=== PATIENT | male | born 1960 | race African-American/Black ===

== ENCOUNTER 2016-09-22 12:00 | Emergency (ER) | payer OTHER ==
[~2016-09-22] VITALS: Ht 175.3 cm; Wt 118.9 kg
[~2016-09-22 12:00] MED LIST: AMLODIPINE-BEN1 EACH PO; BENADRYL25 MG PO; DELTASONE20 M1 PO; FLONASE16 G1 BOTH NARES; GABAPENTIN600 MG PO; HYDROCODON-ACE1 EAC7 PO; KEFLEX500 MG PO; LIPITOR10 MG PO; LISINOPRIL40 MG PO; MOTRIN800 MG PO; NAPROSYN500 MG PO; RANITIDINE HCL150 MG PO; REGLAN10 MG PO; VALIUM5 MG PO
[2016-09-22] MEDS ORDERED: AZITHROMYCIN250 MG PO (12:11)
[2016-09-22] MEDS ORDERED: PEPCID20 MG PO (13:31)
[2016-09-22] MEDS ORDERED: PREDNISONE50 MG PO (13:31)
[2016-09-22] MEDS ORDERED: BENADRYL25 MG PO (13:31)
[2016-09-22 13:46] VITALS: BP 145/89
== END 2016-09-22 13:54 | disposition home or self-care (01) ==
LOC: EME 12:00
DX: T78.40XA Allergy, unspecified, initial encounter (principal); J45.909 Unspecified asthma, uncomplicated; E11.9 Type 2 diabetes mellitus without complications
CPT/HCPCS: 99281; 99284; J1200; J2930; J7030; S0028

== ENCOUNTER 2016-10-15 19:29 | Emergency (ER) | payer OTHER ==
[~2016-10-15] VITALS: Ht 175.3 cm; Wt 114.8 kg
[~2016-10-15 19:29] MED LIST changes: +AZITHROMYCIN250 MG PO; +PEPCID20 MG PO; +PREDNISONE50 MG PO
[2016-10-15 19:50] LABS: POINT-OF-CARE METER ID UU13113778
[2016-10-15 23:35] LABS: POINT-OF-CARE METER ID UU14100415
[2016-10-15 23:44] VITALS: BP 121/73
== END 2016-10-15 23:45 | disposition home or self-care (01) ==
LOC: EME 19:29
PROVIDERS: Emergency Medicine
DX: E11.65 Type 2 diabetes mellitus with hyperglycemia (principal); J45.909 Unspecified asthma, uncomplicated
CPT/HCPCS: 82948; 99281; 99285; J7030

== ENCOUNTER 2016-12-24 03:14 | Observation (INO) | payer OTHER ==
[~2016-12-24] VITALS: Ht 175.3 cm; Wt 115.4 kg
[2016-12-24 04:31] LABS: HEMATOCRIT 43.8 % (38.0-50.0); MCH 25.3 PG (29.0-34.0); MCV 79.2 FL (86-99); MEAN PLAT.VOLUME 10.1 uM^3 (9.0-12.4); PLATELET COUNT 369 K/uL (156-360); RBC DIS.WIDTH-CV 12.5 % (11.8-14.6); RBC DIS.WIDTH-SD 35.7 % (39-53); RED BLOOD COUNT 5.53 M/uL (4.00-5.50); WHITE BLOOD COUNT 5.8 K/uL (4.1-10.2)
[2016-12-24 04:42] LABS: CHLORIDE 104 mEq/L (99-109); POTASSIUM 3.8 mEq/L (3.7-5.4); SODIUM 138 mEq/L (136-147)
[2016-12-24 04:43] LABS: GLUCOSE 158 mg/dL (70-99)
[2016-12-24 04:45] LABS: ANION GAP 10 MEQ/L (2-14)
[2016-12-24 04:47] LABS: GFR ESTIMATE (CALCULATED) > 59 mL/min/
[2016-12-24 04:48] LABS: UREA NITROGEN (BUN) 14 mg/dL (9-23)
[2016-12-24 04:52] LABS: TROP-I INTERPRETATION NEGATIVE; TROPONIN-I < 0.01 ng/mL (0.0-0.30)
[2016-12-24 05:34] LABS: INFLUENZA A VIRAL ANTIGEN NEGATIVE; INFLUENZA B VIRAL ANTIGEN NEGATIVE
[2016-12-24 06:26] LABS: D-DIMER ELISA 0.64 mg/L FEU (< 0.57)
[2016-12-24] MEDS ORDERED: AMLODIPINE BESY10 MG PO (08:11)
[2016-12-24] MEDS ORDERED: METFORMIN HCL1000 MG PO (08:11)
[2016-12-24] MEDS ORDERED: GLIMEPIRIDE2 MG PO (08:12)
[2016-12-24] MEDS ORDERED: HYDROCHLOROTH12.5 M3 PO (08:12)
[2016-12-24] MEDS ORDERED: OPANA ER20 MG PO (08:13)
[2016-12-24 09:45] LABS: TROP-I INTERPRETATION NEGATIVE; TROPONIN-I < 0.01 ng/mL (0.0-0.30)
[2016-12-24 10:40] LABS: Estimated Average Glucose 169 mg/dL (70-123); HEMOGLOBIN A1c (GLYCOHEMOGLOB) 7.5 % HGB (Below 5.7)
[2016-12-24 17:25] LABS: POINT-OF-CARE METER ID UU13113700
[2016-12-24 19:25] LABS: EOSINOPHIL (%) 0.4 % (0-5); HEMATOCRIT 42.8 % (38.0-50.0); IMMATURE GRANULOCYTE (%) 0.4 % (0.0-0.7); LYMPHOCYTE COUNT 2.3 K/uL (1.0-2.8); MCH 25.1 PG (29.0-34.0); MCHC 31.8 G/DL (30.0-36.0); MCV 79.1 FL (86-99); MEAN PLAT.VOLUME 9.5 uM^3 (9.0-12.4); MONOCYTE (%) 5.2 % (3-12); MONOCYTE COUNT 0.4 K/uL (0-0.8); NEUTROPHIL (%) 59.9 % (45-76); PLATELET COUNT 354 K/uL (156-360); RBC DIS.WIDTH-CV 12.7 % (11.8-14.6); RBC DIS.WIDTH-SD 35.8 % (39-53); RED BLOOD COUNT 5.41 M/uL (4.00-5.50); WHITE BLOOD COUNT 6.7 K/uL (4.1-10.2)
[2016-12-24 19:48] LABS: ALKALINE PHOSPHATASE 78 IU/L (3-129); ANION GAP 9 MEQ/L (2-14); CHLORIDE 103 MEQ/L (99-109); GFR ESTIMATE (CALCULATED) > 59 mL/min/; GLUCOSE 163 mg/dL (70-99); POTASSIUM 3.5 MEQ/L (3.7-5.4); SAMPLE HEMOLYSIS CHECK 0; SAMPLE ICTERIC CHECK 0; SAMPLE LIPEMIA CHECK 0; SODIUM 137 MEQ/L (136-147); TOTAL BILIRUBIN 0.7 MG/DL (0.0-1.0); UREA NITROGEN (BUN) 12 mg/dL (9-23)
[2016-12-24 19:53] LABS: PROTHROMBIN TIME 10.6 (9.2-11.2)
[2016-12-24 20:00] VITALS: BP 127/71; BP 138/73
[2016-12-24 20:20] LABS: ERTH.SED.RATE 37 MM/HR (0-20)
[2016-12-24] MEDS ORDERED: ADVAIR 250/501 DISK IH ×2 (20:46→20:47)
[2016-12-24] MEDS ORDERED: LEVO-T75 MCG PO (20:47)
[2016-12-24] MEDS ORDERED: ATROVENT H200 INHALA IH (20:49)
[2016-12-24 21:30] LABS: POINT-OF-CARE METER ID UU13113700
[2016-12-25] VITALS: BP 127/71
[2016-12-25 04:00] VITALS: BP 122/74
[2016-12-25 08:30] VITALS: BP 134/86
[2016-12-25 09:00] LABS: POINT-OF-CARE METER ID UU13113831
[2016-12-25 09:15] LABS: HEMATOCRIT 40.1 % (38.0-50.0); MCH 25.1 PG (29.0-34.0); MCHC 31.7 G/DL (30.0-36.0); MCV 79.4 FL (86-99); PLATELET COUNT 339 K/uL (156-360); RBC DIS.WIDTH-CV 12.7 % (11.8-14.6); RBC DIS.WIDTH-SD 35.9 % (39-53); RED BLOOD COUNT 5.05 M/uL (4.00-5.50); WHITE BLOOD COUNT 5.2 K/uL (4.1-10.2)
[2016-12-25 09:37] LABS: ANION GAP 8 MEQ/L (2-14); CHLORIDE 103 MEQ/L (99-109); SAMPLE HEMOLYSIS CHECK 0; SAMPLE ICTERIC CHECK 0; SAMPLE LIPEMIA CHECK 0; SODIUM 139 MEQ/L (136-147)
[2016-12-25 09:43] LABS: GFR ESTIMATE (CALCULATED) > 59 mL/min/; GLUCOSE 133 mg/dL (70-99); UREA NITROGEN (BUN) 10 mg/dL (9-23)
[2016-12-25 10:44] VITALS: BP 134/88
[2016-12-25] MEDS ORDERED: ANTIVERT25 MG PO (12:03)
[2016-12-25 13:16] LABS: POINT-OF-CARE METER ID UU14162513
[2016-12-25 16:20] VITALS: BP 147/81
== END 2016-12-25 16:42 | disposition home or self-care (01) ==
LOC: EME 03:14 → EDOF 08:43 → 5WEST 08:43 → EDOF 09:54 → 5WEST 11:57
PROVIDERS: Emergency Medicine; Hospitalist; Nurse Practitioner Adult Health; Physician Assistant Medical
DX: R42 Dizziness and giddiness (principal); R55 Syncope and collapse; E87.2 Acidosis; I10 Essential (primary) hypertension; E11.9 Type 2 diabetes mellitus without complications; G47.33 Obstructive sleep apnea (adult) (pediatric); E03.9 Hypothyroidism, unspecified; G89.29 Other chronic pain; M54.9 Dorsalgia, unspecified
CPT/HCPCS: 70450; 70551; 71020; 71275; 80048; 80053; 82803; 82948; 83036; 83605; 84484; 85025; 85027; 85379; 85610; 85651; 87040; 87493; 87502; 93005; 94640; 94640 76; 99202; 99281; 99285; G0378; G8978 GP CI; G8979 GP CH; J1650; J1815; J2060; J7030; J7120; S0028